=== PATIENT | male | born 1995 | race Caucasian/White ===

== ENCOUNTER 2017-01-14 22:12 | Emergency (ER) | payer BC ==
[2017-01-14] MEDS ORDERED: Hydrocortisone 2.5% CREAM(NF) 30 GM TUBE TOPICAL ONE (23:38)
--- NOTE | 2017-01-14 23:50 | ED ---
Skin Complaint - HPI Summary HPI Summary: The patient is a 21 year old male presenting to ED for complaint of pruritic rash to right arm which began approximately 3 hours ago. Since onset erythema has been decreasing and no longer pruritic. Denies tongue or lip swelling, sore throat, inability to swallow, chest tightness, shortness of breath, cough, wheezing, abdominal pain, nausea, vomiting. Denies new food, soap, detergent, lotion, cologne. No recent travel or sleeping elsewhere. Indicates recent transient discontinuation of Lamictal for 7 days restarted for the past 3 nights with last dose yesterday. No additional new medications. History of asthma, Bipolar. SH: Student at [employer]. Occasional alcohol use. No smoking or IVDU. - History of Current Complaint Chief Complaint: EDRashSkinAbscess Time Seen by Provider: 01/14/17 22:59 Stated Complaint: RASH , Pain Intensity: 0 - Allergy/Home Medications Allergies/Adverse Reactions: Allergies Allergy/AdvReac Type Severity Reaction Status Date / Time Cephalexin Allergy Intermediate Hives Verified 12/02/15 12:36 PMH/Surg Hx/FS Hx/Imm Hx Respiratory History: Reports: Hx Asthma Sensory History: Reports: Hx Contacts or Glasses Opthamlomology History: Reports: Hx Contacts or Glasses Psychiatric History: Reports: Hx Anxiety, Hx Depression Infectious Disease History: No Infectious Disease History: Denies: Traveled Outside the [place] in Last 30 Days - Social History Alcohol Use: None Substance Use Type: Reports: None Smoking Status (MU): Unknown if Ever Smoked Review of Systems ENT: Negative Negative: Sore Throat Cardiovascular: Negative Negative: Chest Pain Respiratory: Negative Negative: Shortness Of Breath, Cough Gastrointestinal: Negative Negative: Abdominal Pain, Vomiting, Nausea Negative: Arthralgia, Myalgia, Edema Positive: Rash. Negative: Bruising Neurological: Negative Negative: Paresthesia All Other Systems Reviewed And Are Negative: Yes Physical Exam Triage Information Reviewed: Yes Vital Signs On Initial Exam: Initial Vitals Temp Pulse Resp BP Pulse Ox 99.0 F 66 20 129/76 100 01/14/17 22:19 01/14/17 22:19 01/14/17 22:19 01/14/17 22:19 01/14/17 22:19 Vital Signs Reviewed: Yes Appearance: Positive: Well-Appearing, No Pain Distress, Well-Nourished Skin: Positive: Warm, Skin Color Reflects Adequate Perfusion, Dry Head/Face: Positive: Normal Head/Face Inspection Eyes: Positive: Normal, EOMI, ERIS, Conjunctiva Clear ENT: Positive: Normal ENT inspection, Hearing grossly normal, Pharynx normal, Other - no angioedema of lip, tongue or oropharynx Neck: Positive: Supple, Other: - no stridor Respiratory/Lung Sounds: Positive: Clear to Auscultation, Breath Sounds Present. Negative: Decreased Breath Sounds, Rales, Rhonchi, Stridor, Wheezes, Unable to speak in full sentences Cardiovascular: Positive: Normal, RRR, S1, S2. Negative: Murmur, Rub, Leg Edema Left, Leg Edema Right Abdomen Description: Positive: Nontender, No Organomegaly, Soft Bowel Sounds: Positive: Present Musculoskeletal: Positive: Normal - AROM all extremities Neurological: Positive: Alert, Oriented to Person Place, Time, Other - mild motor tic of face Psychiatric: Positive: Normal, Affect/Mood Appropriate AVPU Assessment: Alert Diagnostics - Vital Signs Vital Signs Temp Pulse Resp BP Pulse Ox 01/14/17 22:19 99.0 F 66 20 129/76 100 - Laboratory Lab Statement: Any lab studies that have been ordered have been reviewed, and results considered in the medical decision making process. Course/Dx - Course Assessment/Plan: Clinical impression of mild dermatitis cause unknown. Advised to continue with Zyrtec. Will give hydrocortizone cream. Advised to take dose of Lamictal tonight. If rash recurrent or worsening, discontinue Lamictal. Advised to follow-up with Rody in 3-5 days. - Diagnoses Provider Diagnoses: Dermatitis Discharge - Discharge Plan Condition: Stable Disposition: HOME Patient Education Materials: Dermatitis (ED) Referrals: [facility] RODY Greenberg [Primary Care Provider] - 5 Days
[2017-01-14] MEDS ORDERED: Hydrocortisone 1% CREAM* 30 GM TUBE TOPICAL ONE (23:54)
[2017-01-15 00:17] VITALS: BP 123/86
== END 2017-01-15 00:16 | disposition home or self-care (01) ==
LOC: ED 22:12
DX: L30.9 Dermatitis, unspecified (principal); R21 Rash and other nonspecific skin eruption
CPT/HCPCS: 99281; A9270-GY